=== PATIENT | female | born 1965 | race Caucasian/White ===

== ENCOUNTER 2018-08-30 20:27 | Emergency (ER) | payer MEDICARE ==
--- NOTE | 2018-08-30 21:28 | RADIOLOGY REPORT (SQ) ---
XR CHEST 1 VIEW CLINICAL STATEMENT: cp COMPARISON: None FINDINGS: Cardiomediastinal silhouette is within normal limits. There is no focal lung consolidation or pleural effusion. No evidence of pulmonary edema or pneumothorax. IMPRESSION: No acute cardiopulmonary disease.
--- NOTE | 2018-08-30 23:45 | ER Document Report ---
ED Medical Screen (RME) - General Chief Complaint: Chest Pain Stated Complaint: CHEST PAIN Time Seen by Provider: 08/30/18 23:41 Notes: 53-year-old female presenting for sharp stabbing left-sided chest pain for the past couple of days. Symptoms started with the upper respiratory/sore throat. She has been given aspirin and nitroglycerin prior to arrival I have treated and performed a rapid initial assessment of this patient. A c omprehensive ED assessment and evaluation of the patient, analysis of test results and completion of medical decision making process will be conducted by additional ED providers. PHYSICAL EXAMINATION: GENERAL: Well-appearing, well-nourished and in no acute distress. A&Ox4. Answers questions appropriately. LUNGS: Breath sounds clear to auscultation bilaterally and equal. No wheezes rales or rhonchi. HEART: Regular rate and rhythm without murmurs, rubs, gallops. Extremities: No cyanosis, clubbing, or edema b/l. NEUROLOGICAL: Normal speech, normal gait. PSYCH: Normal mood, normal affect. Physical Exam - Vital signs Vitals: Temp Pulse Resp BP Pulse Ox 98.5 F 82 14 125/83 96 08/30/18 20:45 08/30/18 20:45 08/30/18 20:45 08/30/18 20:45 08/30/18 20:45 Course - Vital Signs Vital signs: Temp Pulse Resp BP Pulse Ox 98.5 F 82 14 125/83 96 08/30/18 20:45 08/30/18 20:45 08/30/18 20:45 08/30/18 20:45 08/30/18 20:45 - Laboratory Result Diagrams: 08/30/18 20:00 08/30/18 20:00
[2018-08-30 23:51] LABS: ABSOLUTE EOSINOPHILS # (AUTO) 0.1 10^3/uL (0.0-0.6); ABSOLUTE LYMPHOCYTES (AUTO) 1.5 10^3/uL (0.5-4.7); ABSOLUTE MONOCYTES (AUTO) 0.3 10^3/uL (0.1-1.4); ABSOLUTE NEUT (AUTO) 2.6 10^3/uL (1.7-8.2); BASOPHILS % (AUTO) 0.8 % (0-2); EOSINOPHILS % (AUTO) 1.9 % (0-6); HEMATOCRIT 40.2 % (36.0-47.0); HEMOGLOBIN 13.9 g/dL (12.0-15.5); LYMPHOCYTES % (AUTO) 33.5 % (13-45); MEAN CORPUSCULAR HEMOGLOBIN 30.2 pg (27.0-33.4); MEAN CORPUSCULAR HGB CONC 34.6 g/dL (32.0-36.0); MEAN CORPUSCULAR VOLUME 88 fl (80-97); MONOCYTES % (AUTO) 7.2 % (3-13); PLATELET COUNT 150 10^3/uL (150-450); RED BLOOD COUNT 4.59 10^6/uL (3.72-5.28); RED CELL DISTRIBUTION WIDTH 13.4 % (11.5-14.0); SEGMENTED NEUTROPHILS % (AUTO) 56.6 % (42-78); TOTAL CELLS COUNTED % (AUTO) 100 %; WHITE BLOOD COUNT 4.6 10^3/uL (4.0-10.5)
[2018-08-31 00:10] LABS: ALANINE AMINOTRANSFERASE 43 U/L (9-52); ALBUMIN 4.3 g/dL (3.5-5.0); ALKALINE PHOSPHATASE 73 U/L (38-126); ANION GAP 9 (5-19); ASPARTATE AMINO TRANSFERASE 31 U/L (14-36); BILIRUBIN,DIRECT 0.3 mg/dL (0.0-0.4); BILIRUBIN,TOTAL 0.4 mg/dL (0.2-1.3); BLOOD UREA NITROGEN 16 mg/dL (7-20); CALCIUM 9.3 mg/dL (8.4-10.2); CARBON DIOXIDE 27 mmol/L (22-30); CHLORIDE 102 mmol/L (98-107); CREATINE KINASE 89 U/L (30-135); GLUCOSE 114 mg/dL (75-110); POTASSIUM 4.1 mmol/L (3.6-5.0); TOTAL PROTEIN 7.3 g/dL (6.3-8.2)
[2018-08-31 00:22] LABS: CREATINE KINASE MB 0.54 ng/mL (<4.55)
[2018-08-31 00:23] LABS: TROPONIN I < 0.012 ng/mL
[2018-08-31] MEDS ORDERED: KETOROLAC TROMETHAMINE INJ/PF 30 MG/1 ML SDV IV ONE (00:53)
[2018-08-31] MEDS ORDERED: LIDOCAINE 5% (700 MG) TRANSDERMAL ADH..PATCH TP ONE (00:53)
[2018-08-31] MEDS ORDERED: METOCLOPRAMIDE HCL INJ/PF 10 MG/2 ML SDV IV ONE (00:53)
--- NOTE | 2018-08-31 00:56 | ER Document Report ---
ED General - General Chief Complaint: Chest Pain Stated Complaint: CHEST PAIN Time Seen by Provider: 08/30/18 23:41 Notes: Patient is a 53-year-old female with past medical history of obesity, prediabetes, presents complaining of chest discomfort that started 5 to 6 hours prior to arrival. Patient states that it is a stabbing, pain over the left chest that intermittently comes into her left upper extremity. States that it is dramatically worsened by palpation or by moving. Denies pleuritic pain. States that her symptoms started after several days of nasal congestion, sore throat and cough. She has not tried nothing to improve the pain. Denies any cardiac history. No history of similar pains in the past. Has not seen her primary care physician regarding today's concerns. No use of estrogen, history of malignancy, history of DVT or pulmonary embolus. Denies any form of anticoagulation. Contrary to triage assessment note the patient denies any relief with nitroglycerin or aspirin. Again she also denies any pain with jorgito athing. - Related Data Allergies/Adverse Reactions: adhesive tape Allergy (Verified 08/31/18 01:39) bacitracin [From Neosporin ([id number])] Allergy (Verified 08/31/18 01:39) cyclobenzaprine [From Flexeril] Allergy (Verified 08/31/18 01:39) dicyclomine [From Bentyl] Allergy (Verified 08/31/18 01:39) neomycin [From Neosporin ([id number])] Allergy (Verified 08/31/18 01:39) polymyxin B [From Neosporin ([id number])] Allergy (Verified 08/31/18 01:39) valdecoxib [From Bextra] Allergy (Verified 08/31/18 01:39) Past Medical History - General Information source: Patient - Social History Smoking Status: Never Smoker Frequency of alcohol use: None Drug Abuse: None Lives with: Family Family History: Reviewed & Not Pertinent Review of Systems - Review of Systems Notes: Constitutional: Negative for fever. HENT: Positive for sore throat. Eyes: Negative for visual changes. Cardiovascular: Positive for chest pain. Respiratory: Negative for shortness of breath. Positive for cough Gastrointestinal: Negative for abdominal pain, vomiting or diarrhea. Genitourinary: Negative for dysuria. Musculoskeletal: Negative for back pain. Skin: Negative for rash. Neurological: Negative for headaches, weakness or numbness. 10 point ROS negative except as marked above and in HPI. Physical Exam - Vital signs Vitals: Pulse Ox 97 08/30/18 20:29 Interpretation: Normal Notes: PHYSICAL EXAMINATION: GENERAL: Well-appearing, well-nourished and in no acute distress. HEAD: Atraumatic, normocephalic. EYES: Pupils equal round and reactive to light, extraocular movements intact, sclera anicteric, conjunctiva are normal. ENT: nares patent, oropharynx clear without exudates. Moist mucous membranes. NECK: Normal range of motion, supple without lymphadenopathy LUNGS: Breath sounds clear to auscultation bilaterally and equal. No wheezes rales or rhonchi. HEART: Regular rate and rhythm without murmurs Chest wall: Pain reproduced on palpation of the left central chest ABDOMEN: Soft, nontender, normoactive bowel sounds. No guarding, no rebound. No masses appreciated. EXTREMITIES: Normal range of motion, no pitting or edema. No cyanosis. NEUROLOGICAL: No focal neurological deficits. Moves all extremities spontaneously and on command. PSYCH: Normal mood, normal affect. SKIN: Warm, Dry, normal turgor, no rashes or lesions noted. Course - Re-evaluation Re-evalutation: 08/31/18 00:55 Presentation of chest pain in an otherwise well appearing patient. Low clinical suspicion for ACS given clinical history, exam, EKG without ST elevations or depressions, and negative initial troponin. HEART score less than or equal to 3. PE also seems unlikely given clinical history, absence of tachycardia or dyspnea. Wells score is 0. CXR without evidence of pneumothorax or pneumonia. No widened mediastinum. Aortic dissection also seems unlikely given history, sym metric pulses, CXR, and vitals. Patient's pain is completely reproducible on palpation and with movement. Appears to be very musculoskeletal in origin likely from persistent coughing in the setting of a probable upper respiratory infection. Will repeat troponin III hours after initial and this this does remain normal will plan to treat as such with recognitions for follow-up and consideration of stress testing. - Vital Signs Vital signs: Temp Pulse Resp BP Pulse Ox 98.5 F 82 14 125/83 96 08/30/18 20:45 08/30/18 20:45 08/30/18 20:45 08/30/18 20:45 08/30/18 20:45 - Laboratory Result Diagrams: 08/30/18 23:40 08/30/18 23:40 Laboratory results interpreted by me: 08/30/18 23:40 Est GFR (Non-Af Amer) 50 L Glucose 114 H - Diagnostic Test Radiology reviewed: Image reviewed, Reports reviewed Radiology results interpreted by me: 08/31/18 03:24 Chest x-ray: No acute infiltrate or pneumothorax - EKG Interpretation by Me Additional EKG results interpreted by me: 08/31/18 03:24 Sinus rhythm, rate 60. No ST elevations or depressions. QTC is 484. Discharge - Discharge Clinical Impression: Viral upper respiratory infection Chest pain Qualifiers: Chest pain type: unspecified Qualified Code(s): R07.9 - Chest pain, unspecified Condition: Good Disposition: HOME, SELF-CARE Additional Instructions: You were seen today for chest pain. The exact cause of your pain is unclear. It does however seem to be most likely related to the muscles of your chest wall. Based on your cardiac enzyme testing, chest x-ray, and EKG it does not appear that it is from an immediately life-threatening cause at this time. Although your testing here is normal is critical that you follow-up with your primary care physician for continued evaluation of this chest pain and possible stress testing. I recommended you see your physician within the next 24-48 hours to be evaluated for consideration of a stress test. Please return to emergency department immediately if you have worsening of your chest pain, shortness of breath, vomiting, become unable to exert yourself due to pain or difficulty breathing, you pass out, or have any pain that radiates into your arms, jaw, or back. Please also return if you have any additional symptoms that are concerning to you.
[2018-08-31 04:19] VITALS: BP 122/70
--- NOTE | 2018-08-31 07:37 | EKG REPORT ---
SEVERITY:- ABNORMAL ECG - SINUS RHYTHM LEFT VENTRICULAR HYPERTROPHY NONSPECIFIC ST-T CHANGES ANTERIOR LEADS : Confirmed by: Panfilo De Leon MD 31-Aug-2018 07:35:59
== END 2018-08-31 04:24 | disposition home or self-care (01) ==
LOC: ER 20:27
DX: R07.9 Chest pain, unspecified (principal); M79.602 Pain in left arm; J06.9 Acute upper respiratory infection, unspecified; B97.89 Other viral agents as the cause of diseases classified elsewhere; E66.9 Obesity, unspecified; R09.81 Nasal congestion; J02.9 Acute pharyngitis, unspecified; R05 Cough; Z91.048 Other nonmedicinal substance allergy status; Z88.3 Allergy status to other anti-infective agents; Z88.8 Allergy status to other drugs, medicaments and biological substances
CPT/HCPCS: 93005; 99285; 96374; 96375; 36415; 82553; 82550; 85025; 80053; 84484; 71045; 93010; J1885; J2765